=== PATIENT | male | born 1955 | race Caucasian/White ===

== ENCOUNTER 2023-11-11 07:12 | Outpatient (CLI) | payer OTHER, SELFPAY ==
[2023-11-11 08:08] LABS: Basophils Percent Auto 0.9 % (0.2-1.2); Eosinophils Absolute Auto 0.2 K/mm3 (0-0.3); Eosinophils Percent Auto 5.2 % (0-4.4); Hematocrit 42.2 % (42.0-52.0); Hemoglobin 15.3 g/dL (14.0-18.0); Immature Granulocyte Absolute 0.01 K/mm3 (0.00-0.031); Immature Granulocyte Percent A 0.2 % (0-0.5); Lymphocytes Absolute Auto 1.52 K/mm3 (0.9-3.2); Lymphocytes Percent Auto 32.8 % (18.3-44.2); Mean Corpuscular HGB Conc 36.3 g/dl (32-36); Mean Corpuscular Hemoglobin 29.3 pg (26-34); Mean Corpuscular Volume 80.8 fl (80-100); Mean Platelet Volume 9.3 fl (7.4-10.4); Monocytes Absolute Auto 0.3 K/mm3 (0.1-0.6); Monocytes Percent Auto 6.9 % (2.6-8.5); Neutrophils Absolute Auto 2.5 K/mm3 (1.3-6.7); Platelet Count Result 161 k/mm3 (150-375); Red Blood Count 5.22 M/mm3 (4.6-6.20); White Blood Count 4.6 K/mm3 (4.5-10.0)
[2023-11-11 08:33] LABS: Iron 33 ug/dL (49-181)
[2023-11-11 08:42] LABS: Percent Iron Saturation 12 % (20-50)
[2023-11-11 08:48] LABS: Alanine Aminotransferase 12 U/L (6-50); Albumin Level 4.4 g/dL (3.5-5.1); Alkaline Phosphatase 65 U/L (38-126); Anion Gap 7 mmol/L (4-12); Aspartate Amino Transferase 21 U/L (17-59); Bilirubin,Total 0.6 mg/dL (0.2-1.3); Blood Urea Nitrogen 15 mg/dL (9-20); Calcium 8.3 mg/dL (8.4-10.2); Carbon Dioxide 25 mmol/L (22-30); Chloride 108 mmol/L (98-107); Cholesterol 145 mg/dL (0-200); Estimated Glomerular Filt Rate > 60; Glucose 108 mg/dL (65-110); HDL Direct 52 mg/dL; Potassium 3.6 mmol/L (3.4-5.0); Sodium 140 mmol/L (137-145); Triglycerides 91 mg/dL (<150)
[2023-11-11 08:59] LABS: LDL Cholesterol Direct 80 mg/dL
[2023-11-11 09:19] LABS: Prostate Specific Antigen 0.5 ng/mL (< OR = 4.0)
[2023-11-11 09:25] LABS: Hepatitis C Virus Antibody Negative (Negative)
[2023-11-11 09:29] LABS: HIV 1/2 Ab P24 Ag Result Negative (Negative)
[2023-11-17 01:43] LABS: Immunoglobulin A 169 mg/dL (70-320); TTG IGA AB <1.0 U/mL
== END 2023-11-11 07:13 | disposition home or self-care (01) ==
PROVIDERS: PCP Internal Medicine; Visit Provider Clinical Nurse Specialist
DX: R74.01 Elevation of levels of liver transaminase levels (principal); Z13.220 Encounter for screening for lipoid disorders; Z13.29 Encounter for screening for other suspected endocrine disorder; Z12.5 Encounter for screening for malignant neoplasm of prostate; Z11.4 Encounter for screening for human immunodeficiency virus [HIV]
CPT/HCPCS: 36415; 80053; 80061; 82784; 83540; 83550; 84153; 85025; 86364; 86703; 86803; G0103; G0432

== ENCOUNTER 2023-12-27 05:55 | Day surgery (SDC) | payer OTHER, SELFPAY ==
[2023-11-11 14:10] VITALS: BMI 30.9
[2023-12-15 12:49] VITALS: BMI 29.4
--- NOTE | 2023-12-26 12:15 | PM.HPGS ---
History of Present Illness History of Present Illness Consent: Risks, benefits, and alternatives have been discussed and questions answered. Patient agrees to proceed with procedure. Chief complaint: Neoplasm screening Narrative: Aleena Weiss is a 68 year old male who is referred for colon cancer screening. Review of Systems Review of Systems: All systems reviewed & are unremarkable except as noted in HPI and below PMFSH Past Medical History Medical History Allergies Elevated liver enzymes Erectile dysfunction Surgical History Surgical History H/O inguinal hernia repair H/O tooth extraction H/O vasectomy Hx of rotator cuff surgery Family History Family History Mother Cerebrovascular accident Thyroid disorder Sibling Skin cancer Grandparent Family history of uterine cancer Heart problem Social History Social History Social History: no caffine Smoking packs per day: 2 Smoking cigarettes per day: 40.0 Years smoked: 25 Smoking pack-years: 50.00 Smoking status: Current every day smoker Tobacco type: cigars Second hand tobacco smoke exposure: No Additional smoking assessment comments: 1 cigar per week; stopped cigarettes 26 years ago Alcohol intake: current Drinks per week: 7 Alcohol use details: 1 gallon red wine per month Substance use: current Substance use type: does not use Other substance usage details: THC gummies 1/week Lack of Transportation: No Lack of Food: Never True Current Housing: I Have Housing Concerned About Future Housing: No Difficulty Paying Gas/Electric Bills: No Difficulty Paying for Meds: No Currently Unemployed: No Education: Associate Degree Difficulty w/ Childcare or Family Care: No Living arrangements: alone Spiritual care concerns: No Meds Home Medications and Allergies Home Medications Medication Instructions Recorded Confirmed Type sildenafil 100 mg tablet (Viagra) 100 mg PO DAILY PRN Erectile 06/22/21 12/27/23 History Dysfunction clobetasol 0.05 % topical cream 1 applic topical DAILY PRN ear #30 11/21/23 12/27/23 Rx grams ferrous sulfate 325 mg (65 mg 325 mg PO DAILY 12/15/23 12/27/23 History iron) tablet Allergies Allergy/AdvReac Type Severity Reaction Status Date / Time tetracycline Allergy Intermediate Rash Verified 12/27/23 06:15 testosterone Allergy Mild skin Verified 12/27/23 06:15 irritation Exam Resp: Auscultation: clear to auscultation bilaterally Cardio: Rate: regular rate Rhythm: regular rhythm GI: GI Palp: Yes Soft to palpation and No Tenderness to palpation present (GI) Assessment and Plan Assessment and plan (1) Screening for colon cancer: Code(s): Z12.11 - Encounter for screening for malignant neoplasm of colon Status: Acute Assessment and Plan: Colonoscopy with possible biopsy or polypectomy or cautery or injection of substances.
[2023-12-27 06:16] VITALS: BP 137/82; PULSE 64; RESP 16; TEMP 36.8; O2SAT 99
[2023-12-27] MEDS: LACTATED RINGERS 1,000 ML 150 ML IV CONT (06:22)
--- NOTE | 2023-12-27 07:04 | WPDANESEPPF ---
Anes - Initial Pre Proc Eval Procedure: Operation Date: 12/27/23 07:30 Proposed Procedures p Screening Colonoscopy - Iftikhar Lazo MD Date/Time: 12/27/23 07:04 Surgeon: Iftikhar Lazo MD Pre Op Diagnosis: Neoplasm screening Patient Data Age: 68 Gender: M Height: 1.78 m Weight: 95.2 kg Last Vital Signs Temp 36.8 C 12/27/23 06:16 Pulse 64 12/27/23 06:16 Resp 16 12/27/23 06:16 BP 137/82 12/27/23 06:16 Pulse Ox 99 12/27/23 06:16 O2 Del Method Room Air 12/27/23 06:16 Allergies Allergy/AdvReac Type Severity Reaction Status Date / Time tetracycline Allergy Intermediate Rash Verified 12/27/23 06:15 testosterone Allergy Mild skin Verified 12/27/23 06:15 irritation Home Medications Medication Instructions Recorded Confirmed Type sildenafil 100 mg tablet (Viagra) 100 mg PO DAILY PRN Erectile 06/22/21 12/27/23 History Dysfunction clobetasol 0.05 % topical cream 1 applic topical DAILY PRN ear #30 11/21/23 12/27/23 Rx grams ferrous sulfate 325 mg (65 mg 325 mg PO DAILY 12/15/23 12/27/23 History iron) tablet Patient hx anesthesia problems: none Family hx anesthesia problems: none Results Review: All pre-operative results and documents have been reviewed as part of the pre-operative evaluation. [facility] Past Medical History Medical History Allergies Elevated liver enzymes Erectile dysfunction Surgical History Surgical History H/O inguinal hernia repair H/O tooth extraction H/O vasectomy Hx of rotator cuff surgery Family History Family History Mother Cerebrovascular accident Thyroid disorder Sibling Skin cancer Grandparent Family history of uterine cancer Heart problem Social History Social History Social History: no caffine Smoking packs per day: 2 Smoking cigarettes per day: 40.0 Years smoked: 25 Smoking pack-years: 50.00 Smoking status: Current every day smoker Tobacco type: cigars Second hand tobacco smoke exposure: No Additional smoking assessment comments: 1 cigar per week; stopped cigarettes 26 years ago Alcohol intake: current Drinks per week: 7 Alcohol use details: 1 gallon red wine per month Substance use: current Substance use type: does not use Other substance usage details: THC gummies 1/week Lack of Transportation: No Lack of Food: Never True Current Housing: I Have Housing Concerned About Future Housing: No Difficulty Paying Gas/Electric Bills: No Difficulty Paying for Meds: No Currently Unemployed: No Education: Associate Degree Difficulty w/ Childcare or Family Care: No Living arrangements: alone Spiritual care concerns: No Anes - Eval Final PreProcedure Day of Procedure 12/27/23 07:04 Patient weight: obese Heart: regular rate and rhythm Lungs: clear to auscultation Airway: Mallampati scale class II and special considerations poor dentition Neurological: alert and oriented Last oral intake: >/= 8 hours ASA classification: III Emergent: no Anesthetic plan: proceed Anesthesia type and monitoring: general GIVS and standard monitoring Results Review: All pre-operative results and documents have been reviewed as part of the pre-operative evaluation. Informed Consent: The patient's anesthetic plan and its attendant risks and benefits were discussed with the patient/family/POA. Questions were solicited and answers provided to the satisfaction of the patient/family/POA.
[2023-12-27 07:48] VITALS: BP 105/65; PULSE 69; RESP 14; O2SAT 98
--- NOTE | 2023-12-27 07:55 | WPDANESPN ---
Anes - Prog Note Post-Op Date/Time: 12/27/23 07:55 Cardiovascular status: normal Respiratory status: normal Airway patency: baseline Mental status: baseline Post-Op hydration status: normal Vital Signs: Last Vital Signs Temp 36.8 C 12/27/23 06:16 Pulse 64 12/27/23 06:16 Resp 16 12/27/23 06:16 BP 137/82 12/27/23 06:16 Pulse Ox 99 12/27/23 06:16 O2 Del Method Room Air 12/27/23 06:16 Pain Score (VAS): 0/10 I/O: Intake & Output 12/26/23 12/26/23 12/27/23 15:59 23:59 07:59 Intake Total 500 Balance 500 Patient Feedback: Patient satisfied with anesthetic care.
[2023-12-27 07:58] VITALS: BP 109/75; PULSE 65; RESP 18; O2SAT 99
[2023-12-27 08:08] VITALS: BP 123/81; PULSE 60; RESP 18; O2SAT 99
== END 2023-12-27 08:18 | disposition home or self-care (01) ==
PROVIDERS: PCP Internal Medicine; Visit Provider Internal Medicine Gastroenterology
PROC: 0DJD8ZZ Inspection of Lower Intestinal Tract, Via Natural or Artificial Opening Endoscopic (ICD-10-PCS; CPT 45378; principal; 2023-12-27 07:30)
DX: Z12.11 Encounter for screening for malignant neoplasm of colon (principal); D12.8 Benign neoplasm of rectum; D12.5 Benign neoplasm of sigmoid colon; K57.30 Diverticulosis of large intestine without perforation or abscess without bleeding; D12.3 Benign neoplasm of transverse colon
CPT/HCPCS: 45385; 45380

== ENCOUNTER 2023-12-27 07:00 | Outpatient (NON) | payer OTHER, SELFPAY | END 2023-12-27 07:01 | disposition home or self-care (01) | PROVIDERS: PCP Internal Medicine; Visit Provider Internal Medicine Gastroenterology | DX: Z12.11 Encounter for screening for malignant neoplasm of colon (principal) | CPT/HCPCS: 88305 ==

== ENCOUNTER 2024-05-07 12:32 | Outpatient (CLI) | payer OTHER, SELFPAY ==
[2024-05-07 20:02] LABS: Basophils Absolute Auto 0.1 K/mm3 (0.0-0.1); Basophils Percent Auto 1.1 % (0.2-1.2); Eosinophils Absolute Auto 0.2 K/mm3 (0-0.3); Eosinophils Percent Auto 3.5 % (0-4.4); Hemoglobin 16.1 g/dL (14.0-18.0); Immature Granulocyte Absolute 0.01 K/mm3 (0.00-0.031); Immature Granulocyte Percent A 0.2 % (0-0.5); Lymphocytes Absolute Auto 1.85 K/mm3 (0.9-3.2); Lymphocytes Percent Auto 28.2 % (18.3-44.2); Mean Corpuscular HGB Conc 36.6 g/dl (32-36); Mean Corpuscular Hemoglobin 29.5 pg (26-34); Mean Corpuscular Volume 80.6 fl (80-100); Mean Platelet Volume 9.7 fl (7.4-10.4); Monocytes Absolute Auto 0.5 K/mm3 (0.1-0.6); Monocytes Percent Auto 7.3 % (2.6-8.5); Neutrophils Absolute Auto 3.9 K/mm3 (1.3-6.7); Neutrophils Percent Auto 59.7 % (45.5-73.1); Platelet Count Result 189 k/mm3 (150-375); Red Blood Count 5.46 M/mm3 (4.6-6.20); Red Cell Distribution Width 12.3 % (11.5-14.5); White Blood Count 6.6 K/mm3 (4.5-10.0)
[2024-05-07 20:17] LABS: Alanine Aminotransferase 15 U/L (6-50); Albumin Level 4.3 g/dL (3.5-5.1); Alkaline Phosphatase 67 U/L (38-126); Anion Gap 5 mmol/L (4-12); Aspartate Amino Transferase 55 U/L (17-59); Bilirubin,Total 0.5 mg/dL (0.2-1.3); Blood Urea Nitrogen 14 mg/dL (9-20); Calcium 9.2 mg/dL (8.4-10.2); Carbon Dioxide 27 mmol/L (22-30); Chloride 106 mmol/L (98-107); Estimated Glomerular Filt Rate > 60; Glucose 91 mg/dL (65-110); Potassium 3.8 mmol/L (3.4-5.0); Sodium 138 mmol/L (137-145)
[2024-05-07 20:29] LABS: Iron 101 ug/dL (49-181)
[2024-05-07 20:38] LABS: Percent Iron Saturation 31 % (20-50)
[2024-05-07 21:18] LABS: Folic Acid 4.6 ng/mL (2.76->20)
== END 2024-05-07 12:33 | disposition home or self-care (01) ==
LOC: ANHGOSHLAB 12:33
PROVIDERS: PCP Internal Medicine; Visit Provider Clinical Nurse Specialist
DX: D64.9 Anemia, unspecified (principal); R74.01 Elevation of levels of liver transaminase levels; R74.8 Abnormal levels of other serum enzymes
CPT/HCPCS: 36415; 80053; 82607; 82728; 82746; 83540; 83550; 85025

== ENCOUNTER 2024-06-15 10:55 | Outpatient (CLI) | payer MEDICARE, SELFPAY ==
--- OUTSIDE RECORDS SUMMARY | 2024-06-15 11:03 | XMS_ITS | Clinical Summary ---
Author Organization [facility] Address [address] [place] [address] Care Team Providers Care Calciner Operator Name Role Phone Unavailable Primary Care Provider Unavailabl e Allergies Active Allergy Reactions Criticality Noted Date Comments Gentamicin Swelling High 04/07/2010 Facial swelling/head and neck Tetracycline Hives High 04/07/2010 Head to toe hives Unclassified Drug Rash Low 04/08/2010 Testosterone patches (the adhesive on the patches not the medication) Medications CALCIUM CARBONATE (CORAL CALCIUM ORAL) Take 1,500 mg by mouth daily. Active multivitamin (DAILY-NAVYA) Oral tablet Take 1 Tab by mouth daily. Active ascorbic acid (VITAMIN C) 1,000 mg Oral Tab Take 1,000 mg by mouth daily. Active Hospital, Clinic, or Other Facility Administered Medication Ordered Dose Route Frequency Start Date End Date Status BUPivacaine PF (SENSORCAINE MPF) 5 mg/mL (0.5%) 100 mL unilateral fixed rate On-Q pumpIndications:Right inguinal hernia Ifil CONTINUOUS 06/30/2023 Active Active Problems Problem Noted Date Diagnosed Date Pain in left testicle 06/10/2011 Allergic rhinitis, cause unspecified 04/07/2010 Wears glasses 04/07/2010 Overview (04/07/2010): For driving and reading Contact dermatitis and other eczema, due to unspecified cause 04/07/2010 Overview (04/07/2010): In ears and around ears only Encounters Date Type Department Care Team Description 06/13/2024 External Device Data STL ABSTRACTION Provider, Abstract 06/07/2024 External Device Data STL ABSTRACTION Provider, Abstract from Last 3 Months Family History Medical History Relation Name Comments Other Brother 1 Marco Still born Alcohol abuse Brother 2 Jluis Healthy Brother 3 Eliecer Healthy Brother 4 Jean Paul Healthy Daughter 1 Sade Healthy Daughter 2 Amina Healthy Daughter 3 Renata High Cholesterol Father Rosi Hypertension Father Rosi Other Father Rosi accidental deat h at age 74, a fall Aneurysm Maternal Aunt AA Heart Attack Maternal Grandfather at age 64 Arthritis-rheumatoid Maternal Grandmother Heart Disease Maternal Grandmother irrg h eart beart Other Maternal Grandmother Lupus Diabetes Maternal Uncle COPD Mother Rosanne Diabetes Mother Petty Liver Disease Mother Petty Other Mother Petty DJD Unknown Paternal Grandfather Unknown Paternal Grandmother Other Sister 1 Kaey grossly obesity Other Sister 2 Pretty obesity Relation Name Status Comments Brother 1 Marco Brother 2 Jluis Alive Brother 3 Eliecer Alive Brother 4 Jean Paul Alive Daughter 1 Sade Alive Daughter 2 Amina Alive Daughter 3 Renata Alive Father Rosi Maternal Aunt Maternal Grandfather Maternal Grandmother Alive Maternal Uncle Mother Rosanne Alive Paternal Grandfather Paternal Grandmother Sister 1 Kaye Alive Sister 2 Pretty Alive Son none Social History Tobacco Use Types Packs/Day Years Used Date Smoking Tobacco: Some Days Cigars Smokeless Tobacco: Never Tobacco Cessation:Ready to Q uit: Not Asked; Counseling Given: Not Answered Comments:Smokes cigar once weekly Alcohol Use Standard Drinks/Week Comments Yes 0 (1 standard drink = 0.6 oz pur e alcohol) 1 wine cooler or beer a month Feeling Safe Answer Date Recorded Are you in a relationship wi th someone who hurts you emotionally and/or physically? No 07/11/2023 Sex and Gender Information Value Date Recorded Sex Assigned at Not on file Legal Sex Male 5:57 AM SALES ANALYTICS MANAGER Gender Identity Not on file Sexual Orientation Not on file Occupation Industry Job Start Date Job End Date Not on file Not on file Not on file Not on file Last Filed Vital Signs Vital Sign Reading Time Taken Comments Blood Pressure 153/80 07/25/2023 1:02 PM CDT Pulse 73 07/25/2023 12:55 PM CDT Temperature 37.2 ??C (98.9 ??F) 07/11/2023 10:[address] Respiratory Rate 21 07/11/2023 10:11 AM SALES ANALYTICS MANAGER Oxygen Saturation 98% 07/25/2023 12:55 PM CDT Inhaled Oxygen Concentration - - Weight 98 kg (216 lb) 07/25/2023 12:55 PM CDT Height 177.8 cm (5' 10 ) 07/25/2023 12:55 PM CDT Body Mass Index 30.99 07/25/2023 12:55 PM CDT Plan of Treatment Health Maintenance Due Date Last Done Comments Pre-Diabetes and Diabetes Screening 1955 DTAP/TDAP/TD VACCINES (1 - Tdap) 12/19/1974 PNEUMOCOCCAL VACCINE 65+ YEARS (1 of 2 - PCV) 12/19/18 75 COLORECTAL SCREENING 12/19/2000 Colorectal Cancer Screening 12/19/2000 FIT-DNA Q 3 years 12/19/2000 FIT/FOBT Q 1 year 12/19/2000 Flex Sig/CT Colonography Q 5 years 12/19/2000 ZOSTER VACCINE (1 of 2) 12/19/2005 Abdominal Aortic Aneurysm (AAA) Screening 12/19/2020 INFLUENZA VACCINE (#1) 2023 RSV VACCINE (60+ or ) (1 - 1-dose 75+ series) 12/19/2030 Medical Devices Implanted Type Area Concrete Tester Device Identifier Shelf Expiration Date Model / Serial / Lot Log [id number] - Mesh Ethicon Hernia - 1 - Mesh Prolene Ext Phse Implanted:Qty: 1 on 05/20/2010 at [facility] Mesh Left: Inguinal J[employer]J- [employer] 05/16/2013 PHSE / / [id number] Description:mesh prolene Mesh Prolene Ext Phse - [id number] Implanted:Qty: 1 on 07/11/2023 by Cole Chin MD at [facility] Mesh Right: Abdomen J[employer]J- [employer] 01/14/2028 PHSE / / [id number] Insurance * Guarantor: [id number] Account Type Relation to Patient Date of Phone Billing Address Workers Comp Employer Advance Directives For more information, please contact: [phone] Documents on File Type Date Recorded Patient Stakeholder Manager Expl anation Advance Directive POA 07/11/2023 6:54 AM A dvance Directive POA * Full Code (Latest Code Status on File) Date Activated Date Inactivated Comments 07/11/2023 7:01 AM 07/11/2023 1:13 PM * Full Code Date Activated Date Inactivated Comments 05/20/2010 6:23 AM 05/21/2010 2:32 AM
--- OUTSIDE RECORDS SUMMARY | 2024-06-15 11:03 | XMS_ITS | Encounter Summary ---
Author Organization [facility] Address [address] [place] [address] Care Team Providers Care Skip Pit Worker Name Role Phone Unavailable Primary Care Provider Unavailabl e Encounter Details Date Type Department Care Team (Late st Contact Info) Description 06/13/2024 External Device Data [facility] ABSTRACTION Provider, Abstract NO ADDRESS ON FILE Social History Tobacco Use Types Packs/Day Years Used Date Smoking Tobacco: Some Days Cigars Smokeless Tobacco: Never Comments:Smokes cigar once w eekly Alcohol Use Standard Drinks/Week Comments Yes 0 (1 standard drink = 0.6 oz pur e alcohol) 1 wine cooler or beer a month Feeling Safe Answer Date Recorded Are you in a relationship wi th someone who hurts you emotionally and/or physically? No 07/11/2023 Sex and Gender Information Value Date Recorded Sex Assigned at Not on file Legal Sex Male 5:57 AM FINANCIAL SPECIALIST Gender Identity Not on file Sexual Orientation Not on file Occupation Industry Job Start Date Job End Date Not on file Not on file Not on file Not on file documented as of this encounter Plan of Treatment Not on file documented as of this encounter Visit Diagnoses Not on filedocumented in this encounter
--- OUTSIDE RECORDS SUMMARY | 2024-06-15 11:03 | XMS_ITS | Clinical Summary ---
Author Organization [facility] Address [address] [place] [address] Care Team Providers Care Operational Review Sergeant Name Role Phone Mike Coello MD Primary Care Provider [phone] Source Comments [facility],non-owned Affiliates and Associated Physician Practices is amultiple site organization consisting of ambulatory clinics and hospital sitesin [place], [place], [place] and [place]. This disclosure is being madepursuant to the Care Everywhere program and may not contain all information available regarding this patient. Last updated 18.[facility] Social History Tobacco Use Types Packs/Day Years Used Date Smoking Tobacco: Never Assessed Sex and Gender Information Value Date Recorded Sex Assigned at Not on file Gender Identity Not on file Sexual Orientation Not on file Plan of Treatment Health Maintenance Due Date Last Done Comments COLOGUARD (AGES 45-75) - COL ON CA SCREENING 1955 COLON MONITORING 1955 COLONOSCOPY - COLON CA SCREENING 1955 CT COLONOGRAPHY - COLON CA SCREENING 1955 Colorectal Cancer Screening 1955 FIT - COLON CA SCREENING 1955 FLEX SIG - COLON CA SCREENING 1955 LIPID TESTING 1955 MEDICARE AWV ? 12 MONTHS 1955 HEPATITIS C SCREENING 12/15/1973 DTAP/TDAP/TD VACCINES (1 - Tdap) 12/19/1974 PNEUMOCOCCAL VACCINE 50+ (1 of 1 - PCV) 12/19/2005 ZOSTER VACCINE (1 of 2) 12/19/2005 COVID-19 VACCINE ( - 2023-2 5 season) 2024 INFLUENZA VACCINE (#1) 2024 DEPRESSION SCREENING 05/16/2024 Respiratory Syncytial Virus (RSV) Vaccine Pt: or over 60 yrs (1 - 1-dose 75+ series) 12/19/2030 HEPATITIS B VACCINE Aged Out No longe r eligible based on patient's age to complete this topic HIB VACCINE Aged Out No longer eligi ble based on patient's age to complete this topic HPV VACCINE Aged Out No longer eligi ble based on patient's age to complete this topic MENINGOCOCCAL (Group B) VACCINE Aged Out No longer eligible based on patient's age to complete this topic MENINGOCOCCAL VACCINE Aged Out No azalia farzana eligible based on patient's age to complete this topic Care Teams Operational Review Sergeant Relationship Specialty Start Date End Date Mike Coello MD [address] [place] [id number] PCP - General 10/04/11
--- OUTSIDE RECORDS SUMMARY | 2024-06-15 11:03 | XMS_ITS | Referral Summary ---
Author Organization [facility] Address [address] [place] [address] Care Team Providers Care Automatic Pilot Mechanic Name Role Phone Mike Coello MD Primary Care Provider [phone] Source Comments [facility],non-owned Affiliates and Associated Physician Practices is amultiple site organization consisting of ambulatory clinics and hospital sitesin [place], [place], [place] and [place]. This disclosure is being madepursuant to the Care Everywhere program and may not contain all information available regarding this patient. Last updated 18.[facility] [employer] Social History Tobacco Use Types Packs/Day Years Used Date Smoking Tobacco: Never Assessed Sex and Gender Information Value Date Recorded Sex Assigned at Not on file Gender Identity Not on file Sexual Orientation Not on file Plan of Treatment Not on file Care Teams Automatic Pilot Mechanic Relationship Specialty Start Date End Date Mike Coello MD [address] [place] [address] [address] [place] [address] PCP - General 10/04/11
--- OUTSIDE RECORDS SUMMARY | 2024-06-15 11:03 | XMS_ITS | Patient Health Summary ---
Author Organization [facility] Address [address] [place] [address] Care Team Providers Care Electric Organ Assembler Name Role Phone Mike Coello MD Primary Care Provider [phone] Note from [facility],non-owned Affiliates and Associated Physician Practices is amultiple site organization consisting of ambulatory clinics and hospital sitesin [place], [place], [place] and [place]. This disclosure is being madepursuant to the Care Everywhere program and may not contain all information available regarding this patient. Last updated 18.[facility] Social History Tobacco Use Types Packs/Day Years Used Date Smoking Tobacco: Never Assessed Sex and Gender Information Value Date Recorded Sex Assigned at Not on file Gender Identity Not on file Sexual Orientation Not on file Procedures * US SCROTUM W DOPPLER(Performed 10/04/2011) Performed for Orchitis and epididymitis, unspecified Results * US SCROTUM WITH DOPPLER (10/04/2011 1:48 PM CDT) Anatomical Region Laterality Modality Pelvis Ultrasound 10/04/2011 1:51 PM CDT Narrative 10/04/2011 2:39 PM CDT SCROTAL ULTRASOUND HISTORY: Left scrotal pain. The patient has had prior left inguinal hernia repair followed by a testicular or scrotal hematoma. The testes are normal and symmetric in size and appearance. No focal testicular mass is present. There is a small left varicocele. No definite right varicocele is seen. The epididymides appear to be grossly normal in size and symmetric. Color Doppler imaging demonstrates normal flow to the testes and epididymides. DIAGNOSIS: ?? Small left varicocele. Procedure Note Geronimo Prather MD - 10/04/2011 SCROTAL ULTRASOUND HISTORY: Left scrotal pain. The patient has had prior left inguinal hernia repair followed by a testicular or scrotal hematoma. The testes are normal and symmetric in size and appearance. No focal testicular mass is present. There is a small left varicocele. No definite right varicocele is seen. The epididymides appear to be grossly normal in size and symmetric. Color Doppler imaging demonstrates normal flow to the testes and epididymides. DIAGNOSIS: Small left varicocele. Mike Coello MD [facility] Care Teams Electric Organ Assembler Relationship Specialty Start Date End Date Mike Coello MD [address] [address] PCP - General 10/04/11
[2024-06-18 12:23] LABS: Homocysteine 9.4 umol/L (<11.4)
[2024-06-19 09:28] LABS: Methylmalonic Acid 137 nmol/L (69-390)
== END 2024-06-15 10:56 | disposition home or self-care (01) ==
PROVIDERS: PCP Internal Medicine; Visit Provider Clinical Nurse Specialist
DX: E53.8 Deficiency of other specified B group vitamins (principal)
CPT/HCPCS: 36415; 83090; 83921

== ENCOUNTER 2024-08-23 09:42 | Outpatient (CLI) | payer MEDICARE, SELFPAY ==
--- OUTSIDE RECORDS SUMMARY | 2024-08-23 10:15 | XMS_ITS | Clinical Summary ---
Author Organization [facility] Medical Office [facility] Address [address] [place] [address] Care Team Providers Care Maltster Name Role Phone Unavailable Primary Care Provider [...] Encounters Date Type Department Care Team Description 07/21/2024 External Device Data STL ABSTRACTION Provider, Abstract 07/20/2024 External Device Data STL ABSTRACTION Provider, Abstract 07/10/2024 External Device Data [facility]L ABSTRACTION Provider, Abstract 06/13/2024 External Device Data STL ABSTRACTION Provider, [...] Maternal Uncle COPD Mother Rosanne Diabetes Mother [place] Liver Disease Mother Rosanne Other Mother [place] DJD Unknown Paternal Grandfather Unknown Paternal Grandmother Other Sister 1 Kaye grossly obesity Other Sister 2 Pretty obesity Relation Name Status Comments Brother 1 Marco Brother 2 Jluis Alive Brother 3 Eliecer Alive Brother 4 Jean Paul Alive Daughter 1 Sade Alive Daughter 2 Amina Alive Daughter 3 Renata Alive Father Rosi Maternal Aunt Maternal Grandfather Maternal Grandmother Alive Maternal Uncle Mother [place] Alive Paternal Grandfather Paternal Grandmother Sister 1 [...] on file Legal Sex Male 5:57 AM CABLE CUTTER AND SWAGER Gender Identity Not on file Sexual Orientation Not on file Occupation Industry Job Start Date Job End Date Not on file Not on file Not on file Not on file Last Filed Vital Signs Vital Sign Reading Time Taken Comments Blood Pressure 153/80 07/25/2023 1:02 PM CDT Pulse 73 07/25/2023 12:55 PM CDT Temperature 37.2 C (98.9 F) 07/11/2023 10:11 AM CABLE CUTTER AND SWAGER Respiratory Rate 21 07/11/2023 10:11 AM CABLE CUTTER AND SWAGER Oxygen Saturation 98% 07/25/2023 12:55 PM CDT Inhaled Oxygen Concentration - - Weight 98 kg (216 lb) 07/25/2023 12:55 PM CDT Height 177.8 cm (5' 10 ) 07/25/2023 12:55 PM CDT Body Mass Index 30.99 07/25/2023 12:55 PM CDT Plan of Treatment Health Maintenance Due Date Last Done Comments Pre-Diabetes and Diabetes Screening 1955 DTAP/TDAP/TD VACCINES (1 - Tdap) 12/19/1974 PNEUMOCOCCAL VACCINE 50+ YEARS (1 of 2 - PCV) 12/19/18 [...] series) 12/19/2030 Medical Devices Implanted Type Area Soldering Machine Operator Automatic Device Identifier Shelf Expiration Date Model / Serial / Lot Log [id number] - Mesh Ethicon Hernia - 1 - Mesh Prolene Ext Phse Implanted:Qty: 1 on 05/20/2010 at [facility] Mesh Left: Inguinal J[employer]J- [employer] 05/16/2013 PHSE / / [id number] Description:mesh prolene Mesh Prolene Ext Phse - [id number] Implanted:Qty: 1 on 07/11/2023 by Cole Chin MD at [facility] Mesh Right: Abdomen J[employer]- [employer] 01/14/2028 PHSE / / [id number] Insurance [employer] P[employer] [facility] * Guarantor: [id number] Account Type Relation to Patient Date of Phone Billing Address Workers Comp Employer Advance Directives For more information, please contact: [phone] Documents on File Type Date Recorded Patient Paunch Trimmer Expl anation Advance Directive POA 07/11/2023 6:54 AM A dvance Directive POA * Full Code (Latest Code Status on File) Date Activated Date Inactivated Comments 07/11/2023 7:01 AM 07/11/2023 1:13 PM * Full Code Date Activated Date Inactivated Comments 05/20/2010 6:23 AM 05/21/2010 2:32 AM
--- OUTSIDE RECORDS SUMMARY | 2024-08-23 10:15 | XMS_ITS | Clinical Summary ---
Author Organization [facility] Address [address] [place] [address] Care Team Providers Care Light Bulb Replacer Name Role Phone Mike Coello MD Primary Care Provider [phone] Source Comments [facility],non-owned Affiliates and Associated Physician Practices is amultiple site organization consisting of ambulatory clinics and hospital sitesin [place]. This disclosure is being madepursuant to the Care Everywhere program and may not contain all information available regarding this patient. Last updated 18.[facility] Social History Tobacco Use Types Packs/Day Years [...] SCREENING 1955 LIPID TESTING 1955 MEDICARE AWV 12 MONTHS 1955 HEPATITIS C SCREENING 12/15/1973 DTAP/TDAP/TD VACCINES (1 - Tdap) 12/19/1974 PNEUMOCOCCAL VACCINE 50+ (1 of 1 - PCV) 12/19/2005 ZOSTER VACCINE (1 of 2) 12/19/2005 COVID-19 VACCINE ( - 2023-2 5 season) 2024 DEPRESSION SCREENING 05/16/2024 INFLUENZA VACCINE (Season Ended) 2025 Respiratory Syncytial Virus (RSV) Vaccine Pt: or [...] to complete this topic MENINGOCOCCAL (Group B) VACC INE SHARED DECISION-MAKING Aged Out No longer eligibl e based on patient's age to complete this topic MENINGOCOCCAL GROUPS A/C/Y/W VACCINE Aged Out No longer eligible b ased on patient's age to complete this topic Care Teams Light Bulb Replacer Relationship Specialty Start Date End Date Mike Coello MD PCP - General 10/04/11
[2024-08-23 10:32] LABS: Basophils Absolute Auto 0.1 K/mm3 (0.0-0.1); Basophils Percent Auto 0.9 % (0.2-1.2); Eosinophils Absolute Auto 0.2 K/mm3 (0-0.3); Eosinophils Percent Auto 2.6 % (0-4.4); Hematocrit 46.8 % (42.0-52.0); Hemoglobin 16.8 g/dL (14.0-18.0); Immature Granulocyte Absolute 0.02 K/mm3 (0.00-0.031); Immature Granulocyte Percent A 0.3 % (0-0.5); Lymphocytes Absolute Auto 1.96 K/mm3 (0.9-3.2); Lymphocytes Percent Auto 29.5 % (18.3-44.2); Mean Corpuscular HGB Conc 35.9 g/dl (32-36); Mean Corpuscular Hemoglobin 28.6 pg (26-34); Mean Corpuscular Volume 79.6 fl (80-100); Mean Platelet Volume 9.1 fl (7.4-10.4); Monocytes Absolute Auto 0.4 K/mm3 (0.1-0.6); Monocytes Percent Auto 6.5 % (2.6-8.5); Neutrophils Percent Auto 60.2 % (45.5-73.1); Platelet Count Result 221 k/mm3 (150-375); Red Blood Count 5.88 M/mm3 (4.6-6.20); Red Cell Distribution Width 12.4 % (11.5-14.5); White Blood Count 6.7 K/mm3 (4.5-10.0)
== END 2024-08-23 09:43 | disposition home or self-care (01) ==
PROVIDERS: PCP Internal Medicine; Visit Provider Clinical Nurse Specialist
DX: E53.8 Deficiency of other specified B group vitamins (principal)
CPT/HCPCS: 36415; 82607; 85025

== ENCOUNTER 2024-11-20 09:56 | Outpatient (CLI) | payer MEDICARE, SELFPAY ==
--- OUTSIDE RECORDS SUMMARY | 2024-11-20 10:00 | XMS_ITS | Clinical Summary ---
Author Organization [facility] [employer] Address [address] [address] Care Team Providers Care Underground Distribution Engineer Name Role Phone Mike Coello MD Primary Care Provider [phone] Source Comments [facility],non-owned Affiliates and Associated Physician Practices is amultiple site organization consisting of ambulatory clinics and hospital sitesin [place], [place], [place] and [place]. This disclosure is being madepursuant to the Care Everywhere program and may not contain all information available regarding this patient. 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 MEDICARE ADV PPO SELF PAY NO INSURANCE Member Subscriber Plan / Payer (Ef fective for All Dates) Name:Aleena Call Member ID:Not on file Relation to Subscriber:Not on file Name:Aleena CALL Subscriber ID:Not on file (Home) Address: [address] [place] [id number] Payer ID:Not on file Group ID:Not on file Type:Self Pay Address: [place], [place] Care Teams Underground Distribution Engineer Relationship Specialty Start Date End Date Mike Coello MD PCP - General 10/04/11
--- OUTSIDE RECORDS SUMMARY | 2024-11-20 10:00 | XMS_ITS | Clinical Summary ---
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 Gender Identity Not on file Sexual Orientation Not on file Occupation Industry Job Start Date Job End Date Not on file Not on file Not on file Not on file Last Filed Vital Signs Vital Sign Reading Time Taken Comments Blood Pressure 153/80 07/25/2023 1:02 PM CDT Pulse 73 07/25/2023 12:55 PM CDT Temperature 37.2 C (98.9 F) 07/11/2023 10:11 AM HEAD 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 ASSEMBLER Respiratory Rate 21 07/11/2023 10:11 AM HEAD PIECE ASSEMBLER Oxygen Saturation 98% 07/25/2023 12:55 PM CDT Inhaled Oxygen Concentration - - Weight 98 kg (216 lb) 07/25/2023 12:55 PM CDT Height 177.8 cm (5' 10) 07/25/2023 12:55 PM CDT Body Mass Index 30.99 07/25/2023 12:55 PM CDT Plan of Treatment Health Maintenance Due Date Last Done Comments DTAP/TDAP/TD VACCINES (1 - Tdap) 12/19/1974 PNEUMOCOCCAL VACCINE 50+ YEARS (1 of 2 - PCV) 12/19/18 75 COLORECTAL SCREENING 12/19/2000 Colorectal Cancer Screening 12/19/2000 FIT-DNA Q 3 years 12/19/2000 FIT/FOBT Q 1 year 12/19/2000 Flex Sig/CT Colonography Q 5 years 12/19/2000 ZOSTER VACCINE (1 of 2) 12/19/2005 INFLUENZA VACCINE (#1) 2024 RSV VACCINE (60+ or ) (1 - 1-dose 75+ series) 12/19/2030 Medical Devices Implanted Type Area Valving Machine Operator Device Identifier Shelf Expiration Date Model / Serial / Lot Log [id number] - Mesh Ethicon Hernia - 1 - Mesh Prolene Ext Phse Implanted:Qty: 1 on 05/20/[address] [facility] Mesh Left: Inguinal [employer]- [employer] 05/16/2013 PHSE / / [id number] Description:mesh prolene Mesh Prolene Ext Phse - [id number] Implanted:Qty: 1 on 07/11/2023 by Cole Chin MD at 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
[2024-11-20 12:24] LABS: Hematocrit 45.0 % (42.0-52.0); Hemoglobin 16.2 g/dL (14.0-18.0); Immature Granulocyte Percent A 0.2 % (0-0.5); Lymphocytes Absolute Auto 1.57 K/mm3 (0.9-3.2); Mean Corpuscular HGB Conc 36.0 g/dl (32-36); Mean Corpuscular Hemoglobin 28.8 pg (26-34); Mean Corpuscular Volume 80.1 fl (80-100); Nucleated Red Blood Cells Absolute Auto 0.000 K/mm3 (0.0-0.012); Nucleated Red Blood Cells Perc 0.0 % (0.0-0.2); Platelet Count Result 186 k/mm3 (150-375); Red Blood Count 5.62 M/mm3 (4.6-6.20); White Blood Count 4.6 K/mm3 (4.5-10.0)
[2024-11-20 12:52] LABS: Hemoglobin A1C 5.4 % (<5.7)
[2024-11-20 13:16] LABS: Iron 114 ug/dL (49-181)
[2024-11-20 13:18] LABS: Alanine Aminotransferase 19 U/L (6-50); Albumin Level 4.6 g/dL (3.5-5.1); Alkaline Phosphatase 72 U/L (38-126); Anion Gap 10 mmol/L (4-12); Aspartate Amino Transferase 44 U/L (17-59); Bilirubin,Total 0.8 mg/dL (0.2-1.3); Blood Urea Nitrogen 11 mg/dL (9-20); Calcium 9.4 mg/dL (8.4-10.2); Carbon Dioxide 26 mmol/L (22-30); Chloride 105 mmol/L (98-107); Estimated Glomerular Filt Rate > 60; Glucose 98 mg/dL (65-110); Potassium 4.2 mmol/L (3.4-5.0); Sodium 141 mmol/L (137-145); Total Protein 7.4 g/dL (6.3-8.2)
[2024-11-20 13:25] LABS: Percent Iron Saturation 38 % (20-50)
[2024-11-20 13:50] LABS: Prostate Specific Antigen 0.5 ng/mL (< OR = 4.0)
[2024-11-20 13:51] LABS: Ferritin 173.00 ng/mL (11.1-264)
[2024-11-20 14:26] LABS: Vitamin B12 523.0 pg/mL (239-931)
== END 2024-11-20 09:57 | disposition home or self-care (01) ==
PROVIDERS: PCP Internal Medicine; Visit Provider Clinical Nurse Specialist
DX: E53.8 Deficiency of other specified B group vitamins (principal); R74.01 Elevation of levels of liver transaminase levels; Z12.5 Encounter for screening for malignant neoplasm of prostate; D64.9 Anemia, unspecified; J45.909 Unspecified asthma, uncomplicated; R73.01 Impaired fasting glucose; R74.8 Abnormal levels of other serum enzymes
CPT/HCPCS: 36415; 80053; 82607; 82728; 82746; 83036; 83540; 83550; 84153; 85025; G0103